=== PATIENT | female | born 1960 | race Caucasian/White ===

== ENCOUNTER 2025-07-14 10:29 | Emergency (ER) | payer MEDICARE, SELFPAY ==
--- NOTE | 2025-07-14 10:31 | ED_ITS ---
HPI - Female Genitourinary General Chief complaint: Urogenital-Female Stated complaint: UTI Time Seen by Provider: 07/14/25 10:31 Source: patient Mode of arrival: ambulatory Limitations: no limitations History of Present Illness HPI Narrative: Robert is a 65-year-old female patient presenting to the clinic today with complaints of a possible UTI x4 days. She reports she recently got back from [place]. Rates her discomfort a 2-3/10. Has taken Tylenol for her symptoms. Is reporting some right-sided flank/back pain, malodorous urine, and urinary frequency. She denies any fevers, chills, nausea, vomiting, or abdominal pain. Related Data Home Medications ?Medication ?Instructions ?Recorded ?Confirmed ?Last Taken ?Type anastrozole 1 mg tablet 1 mg PO DAILY 10/25/2306/04 Unknown History Allergies Allergy/AdvReac Type Severity Reaction Status Date / Time alendronate sodium (From Allergy Intermediate Unknown Verified 07/14/25 10:50 Fosamax) ciprofloxacin (From Cipro) Allergy Intermediate Swelling Verified 07/14/25 10:50 of Lip/Tongue/Throat paclitaxel (From Taxol) Allergy Intermediate Rash Verified 07/14/25 10:50 Sulfa (Sulfonamide Allergy Intermediate Itching Verified 07/14/25 10:50 Antibiotics) Review of Systems Review of Systems: Pertinent positives per HPI. Patient denies any fever, chills, rash, headache, visual changes, dizziness, cough, runny nose, sore throat, shortness of breath, chest pain, palpitations, nausea, vomiting, diarrhea, constipation, abdominal pain, or any urinary issues. [facility] Past Medical History Medical History Sinusitis UTI (urinary tract infection) Dysuria Social History Social History Smoking status: Never smoker Alcohol intake: never Substance use: never Substance use type: does not use Do You Feel Safe in your Home?: Yes Lack of Transportation: No Lack of Food: Never True Current Housing: I Have Housing Concerned About Future Housing: No Difficulty Paying Gas/Electric Bills: No Difficulty Paying for Meds: No Currently Unemployed: No Education: Master's Degree or Higher Difficulty w/ Childcare or Family Care: No Comments At the time of my signature, I reviewed and agree with the nursing past medical, surgical, social, and family history. There is no relevant family history pertinent to the patient complaint. Exam Narrative: General: Well-developed, well nourished, in no apparent distress. Head: Normocephalic, atraumatic. Cardio: Regular rate and rhythm, s1 and s2 normal, no murmur appreciated. Resp: Clear to auscultation bilaterally, no rhonchi, rales, wheezing or rubs. Abdomen: Soft, pliable, bowel sounds present in all quadrants, non-tender to palpation, no organomegly, right CVAT tenderness. Course Course Emergency Course: Portions of this record may have been created with voice recognition software. Level of Care: Express Care Visit Vital Signs Vital signs: Vital Signs Temperature 36.6 C 07/14/25 10:37 Pulse Rate 78 07/14/25 10:37 Respiratory Rate 18 07/14/25 10:37 Blood Pressure 128/68 07/14/25 10:37 Pulse Oximetry 99 07/14/25 10:37 Oxygen Delivery Room Air 07/14/25 10:37 Temperature 36.6 C 07/14/25 10:37 Pulse Rate 78 07/14/25 10:37 Respiratory Rate 18 07/14/25 10:37 Blood Pressure 128/68 07/14/25 10:37 Pulse Oximetry 99 07/14/25 10:37 Oxygen Delivery Room Air 07/14/25 10:37 Vital signs reviewed MDM - Female Genitourinary MDM Narrative Medical decision making narrative: At the time of visit patient is resting comfortably on the exam table. Patient appears to be nontoxic. Complaints of a possible UTI x4 days. She reports she recently got back from [place]. Rates her discomfort a 2-3/10. Has taken Tylenol for her symptoms. Is reporting some right-sided flank/back pain, malodorous urine, and urinary frequency. She denies any fevers, chills, nausea, vomiting, or abdominal pain. On exam patient has some right CVAT tenderness, no abdominal tenderness, bowel sounds present all 4 quadrants, no organism at with, abdomen soft and pliable. Urine dip ordered. Labs: Urinalysis dip shows leukocytes, blood, and protein. We will send urine for culture Plan: I suspect patient has UTI possible early pyelonephritis. Prescription for cephalexin was sent to the pharmacy as patient has allergies to Bactrim and ciprofloxacin. Supportive measures were discussed with the patient and they voiced understanding discharge instructions and agrees to treatment plan. Return precautions reviewed Differential Diagnosis Differential diagnosis: Likely urinary tract infection, cystitis and other (Pyelonephritis) Lab Data Labs: Lab Results 07/14/25 Range/Units 10:43 POC Urine Color Yellow POC Urine Clarity Cloudy POC Urine pH 5.5 POC Ur Specif Amite 1.025 POC Urine Protein 1+ (Negative) POC Ur Glucose (UA) Negative (Negative) POC Urine Ketones Negative (Negative) POC Urine Blood 2+ (Negative) POC Urine Nitrite Negative (Negative) POC Urine Bilirubin Negative (Negative) POC Urine Urobilinogen 0.2 POC U Leukocyte Esteras 1+ (Negative) Discharge Plan Discharge Clinical Impression: Acute UTI Patient Disposition: Home Condition: Stable Instructions: Antibiotic Form, Urinary Tract Infection in Women (ED) Additional Instructions: Urinalysis positive for leukocytes, blood, and protein. We will send urine for culture. Take cephalexin as prescribed Increase fluids and stay well hydrated Wipe front to back. May use wet wipes. Avoid tub baths If sexually active- pee before and after intercourse. Wear cotton panties Avoid tight clothing up against the genitals Follow up with your PCP in 1 week if symptoms persist. Patient Language: Estonian Prescriptions: New cephalexin 500 mg capsule 500 mg PO Q12H 7 Days Qty: 14 0RF No Action anastrozole 1 mg tablet 1 mg PO DAILY cholecalciferol (vitamin D3) 1,250 mcg (50,000 unit) capsule 1,250 mcg PO WEEKLY Qty: 12 2RF metformin 500 mg tablet See Rx Instructions .ROUTE .COMPLEX Qty: 180 2RF Dose Instruction: TAKE 1 TABLET BY MOUTH TWICE DAILY Rx Instructions: TAKE 1 TABLET BY MOUTH TWICE DAILY levothyroxine [Synthroid] 137 mcg tablet 137 mcg PO DAILY Qty: 90 2RF metoprolol tartrate 25 mg tablet 25 mg PO BID Qty: 180 2RF cyanocobalamin (vitamin B-12) 1,000 mcg/mL solution 1,000 mcg subcut .COMPLEX Qty: 10 2RF Rx Instructions: 1,000 mcg subcutaneously every 2 weeks; Follow-up/Referrals: Emanuel Campbell MD [Primary Care Provider, Internal Medicine] Time of Disposition: 10:54 Quality NIHSS Nursing Documentation ED NIHSS nursing documentation: reviewed/agree
[2025-07-14 10:37] VITALS: BP 128/68; PULSE 78; RESP 18; TEMP 36.6; O2SAT 99
[2025-07-14 10:45] LABS: EDUAAPPEAR Cloudy; EDUABILI Negative (Negative); EDUABLOOD 2+ (Negative); EDUACOLOR1 Yellow; EDUAGLUCOSE Negative (Negative); EDUAKETONE Negative (Negative); EDUALEUKO 1+ (Negative); EDUANITRATE Negative (Negative); EDUAPH 5.5; EDUAPROTEIN 1+ (Negative); EDUASPGRAVITY 1.025; EDUAUROBILI 0.2
--- OUTSIDE RECORDS SUMMARY | 2025-07-14 11:48 | XMS_ITS | Clinical Summary ---
Author Organization [facility] Address [address] [place] [address] Care Team Providers Care Print Shop Chief Clerk Name Role Phone Unavailable Primary Care Provider Unavailabl e Source Comments [facility],non-owned Affiliates and Associated Physician Practices is amultiple site organization consisting of ambulatory clinics and hospital sitesin [place], [place], [place] and [place]. This disclosure is being madepursuant to the Care Everywhere program and may not contain all information available regarding this patient. Last updated 18.[facility] Allergies No known active allergies Medications * Be aware that medications may not be up to date on this document. Alwaysverify current medications with the patient. Cholecalciferol (vitamin D3) 1.25 MG (26608 UT) capsule Take 1 (one) capsule by mouth 01/31/2024 Active cyanocobalamin (Vitamin B-12) injection 11/29/2024 Active Synthroid 137 MCG tablet Take 1 (one) tablet by mouth once daily 11/04/2024 Active metFORMIN (Glucophage) 500 MG tablet Take 1 (one) tablet by mouth 2 times daily 10/30/2024 Active metoprolol tartrate IR (Lopressor) 25 MG tablet Take 1 (one) tablet by mouth 2 times daily 12/09/2024 Active Active Problems No known active problems Social History Tobacco Use Types Packs/Day Years Used Date Smoking Tobacco: Never Assessed Comments Unknown Sex and Gender Information Value Date Recorded Sex Assigned at Not on file Legal Sex Female 2:05 PM CDT Gender Identity Not on file Sexual Orientation Not on file Last Filed Vital Signs Vital Sign Reading Time Taken Comments Blood Pressure 104/68 12/31/2024 2:12 PM CDT Pulse 67 12/31/2024 2:12 PM CDT Temperature - - Respiratory Rate - - Oxygen Saturation 96% 12/31/2024 2:12 PM CDT Inhaled Oxygen Concentration - - Weight 104.8 kg (231 lb) 12/31/2024 2:12 PM CDT Height - - Body Mass Index - - Plan of Treatment Health Maintenance Due Date Last Done Comments BONE DENSITY TESTING 1960 COLOGUARD (AGES 45-75) - COLON CA SCREENING 1958 COLON MONITORING 1958 COLONOSCOPY - COLON CA SCREENING 1958 CT COLONOGRAPHY - COLON CA SCREENING 1960 Colorectal Cancer Screening 1960 FIT - COLON CA SCREENING 1958 FLEX SIG - COLON CA SCREENING 1958 LIPID TESTING 1958 HEPATITIS C SCREENING 02/20/1976 DTAP/TDAP/TD VACCINES (1 - Tdap) 1977 PNEUMOCOCCAL VACCINE 50+ (1 of 1 - PCV) 02/25/2008 ZOSTER VACCINE (1 of 2) 02/25/2008 DEPRESSION SCREENING 10/09/2024 MEDICARE AWV CALENDAR YEAR 2024 COVID-19 VACCINE ( season) 2025 08/04/2021, 11/13/2020, 10/16/2020 INFLUENZA VACCINE (#1) 2025 , 08/08/2021, 10/01/2019, Additional history exists MAMMOGRAM 12/13/2025 12/14/2023 Respiratory Syncytial Virus (RSV) Vaccine Pt: or over 60 yrs (1 - 1-dose 75+ series) 2033 HEPATITIS B VACCINE Aged Out No longe r eligible based on patient's age to complete this topic HIB VACCINE Aged Out No longer eligi ble based on patient's age to complete this topic HPV VACCINE Aged Out No longer eligi ble based on patient's age to complete this topic MENINGOCOCCAL (Group B) VACCINE SHARED DECISION-MAKING Aged Out No longer eligible based on patient's age to complete this topic MENINGOCOCCAL GROUPS A/C/Y/W VACCINE Aged Out No longer eligible based on patient's age to complete this topic Insurance [employer] MEDICARE ADV HMO & PPO
== END 2025-07-14 10:57 | disposition home or self-care (01) ==
PROVIDERS: Emergency Provider Nurse Practitioner Family; PCP Emergency Medicine
DX: N39.0 Urinary tract infection, site not specified (principal)
CPT/HCPCS: 81003; 87077; 87086; 87186; 99213; G0463